=== PATIENT | male | born 1990 | race Caucasian/White ===

== ENCOUNTER 2019-12-07 21:19 | Emergency (ER) | payer OTHER, SELFPAY ==
[2019-12-07 21:20] VITALS: BP 146/90; PULSE 80; RESP 18; TEMP 36.7; O2SAT 98; BMI 24.4
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
--- NOTE | 2019-12-07 22:17 | ED.DEP ---
ED Disposition - Plan for ED Patient: Instructions: ED Concussion, Contusions (Bruises) Prescriptions: cycloBENZAPRine HCl [Flexeril] 10 mg PO TID PRN #20 tab PRN Reason: Muscle Spasm Prescription Printed Ibuprofen [Motrin] 800 mg PO TID PRN PRN #20 tab PRN Reason: Pain Or Fever Prescription Printed Referrals: [facility] [GROUP OF PHYSICIANS] -
== END 2019-12-07 22:48 | disposition home or self-care (01) ==
LOC: ED 22:12
PROVIDERS: Emergency Provider Emergency Medicine; PCP Family Medicine
DX: S00.83XA Contusion of other part of head, initial encounter (principal); S20.222A Contusion of left back wall of thorax, initial encounter; S20.221A Contusion of right back wall of thorax, initial encounter; W55.29XA Other contact with cow, initial encounter; Y93.89 Activity, other specified; Y92.89 Other specified places as the place of occurrence of the external cause; Y99.0 Civilian activity done for income or pay
CPT/HCPCS: 70450; 70486; 71101; 99282

== ENCOUNTER → 2021-06-03 15:12 | Outpatient (CLI) | payer OTHER, SELFPAY ==
--- NOTE | 2021-06-03 15:18 | RAD_ITS ---
EXAM: XR RIGHT ANKLE COMPLETE, 3 OR MORE VIEWS CLINICAL INDICATION: SPRAIN OF ANKLE, RIGHT TECHNIQUE: Frontal, lateral and oblique views of the right ankle. This report was created using [employer] report generation technology. COMPARISON: None. FINDINGS: BONES/JOINTS: Unremarkable. No acute fracture. No subluxation. Normal alignment. Preservation of the joint space. No sclerotic or destructive changes observed. SOFT TISSUES: Unremarkable. No soft tissue swelling or gas. No radiopaque foreign body. RAD/Ankle min 3 Views IMPRESSION: Negative right ankle x-rays. Electronically Signed: Ludwin Ellis MD at 17:32 EST , Service support ,
== END ==
PROVIDERS: PCP Family Medicine; Referring Provider Family Medicine; Visit Provider Family Medicine
DX: S93.401A Sprain of unspecified ligament of right ankle, initial encounter (principal)
CPT/HCPCS: 73610

== ENCOUNTER 2021-08-26 18:00 | Outpatient (RCR) | payer OTHER, SELFPAY ==
--- NOTE | 2021-07-17 15:56 | HP.PTEVAL_ITS ---
Patient's Visit Information IRINA NUNEZ is a 30 year old M referred to Physical Therapy by Dr. Sukhwinder Penn MD with a diagnosis of RECURRENT ANKLE SPRAIN AND RIGHT MEDIAL EPICONDYLITIS. Date of Evaluation: 07/17/21 Physical Therapist: Wagner Frank, PT, Cert MDT, OCS - Visit Plan Frequency: 2x /Week Duration: 4 Weeks Plan: PT INTERVETIONS RIGHT ANKLE STRENGTHENING ,PROPRICEPTION ,FUNCTIONAL STRENGTHNEING ,ELBOW FORARM WRIST STRETCHING/STRENGTHING - Subjective This 30 y/o male presents to physical therapy with recurrent right ankle sprain and right elbow pain. Patient has ankle sprains since middle school ~ 15 years . Last injury during summer but ankle has been remaining sore. Patient pain located right lateral ankle with inversion ankle sprain. Symptoms affected walking worse on uneven surfaces . 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 Denies numbness/tingling. Patient has had right elbow tendonitis for 6 months . Patient aggravating factors working on machines and repetitive activity. Patient does use ankle brace lace up. Grasping and carrying heavy things. Patient condition of ankle sprains recurrent and elbow tendonitis from work demands on diary [employer]. SOCIAL: . VOCATION: [employer] - Pain Right Ankle Pain Intensity (Out of 10): 7 Pain Intensity Range: 10 Comment: during twisting Right Elbow Pain Intensity (Out of 10): 3 Pain Intensity Range: 10 Comment: worse dull pain - Objective POSTURE: fontal plane mechanics pes planus. GAIT: reciprocal gait. PALPATION: medial epicondyle ,olecranon. NEURO: denies paresthesia/tingling. AROM ANKLE : dorsiflexion 5 degrees, plantarflexion 65 degrees ,inversion 35 degrees, eversion 10 degrees. MMT: anteriortibials 5/5,pernoneous, posterior tibials 4/5 ,G-S 4/5. FLEXABLITY: G-S WFL. PROPRIOCEPTION: fair+. AROM ELBOW: supination/pronation/wrist flexion/extension WFL. MMT: biceps/triceps 4/5,wrist flexion/extension/supination/pronation 4/5. 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 Goal Time Frame: 4-6 Weeks Goal 3:: Patient to improve proprioception symmetrical right compared to left to right. 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 Goal Time Frame: 4-6 Weeks Goal 5:: Patient to minimize recurrent ankle sprains by increase ankle strength 5/5 Goal Time Frame: 4-6 Weeks Goal 6:: Patient to improve LFES score by 5 points to improve QOL and function Goal Time Frame: 4-6 Weeks - Rehabilitation Potential Physical Therapy Diagnosis: This 30 y/o has recurrent ankle sprains with laxity anterior drawer and decrease proprioception along with pain elbow tendonitis worsens with job and repetitive activity thus benefit from skilled PT Rehabilitation Potential: Good - Anticipated Interventions Patient/Client Instruction: Educate patient on: Condition, Plan of Care For the Purpose of:: To decrease pain, To increase ROM, To improve muscle performance and motor function, To improve ability to perform ADL's, To increase tolerance to activity/condition/position, To improve performance and independence with ADL's, To improve ability of physical actions for home/community/work/leisure, To improve health of tissue, To decrease soft tissue restriction, To increase flexibility/ROM, To prevent re-injury Therapeutic Exercise to Include: Strength training, Power training, Balance training, Postural training, Flexibilty training, Active ROM Comment: ANKLE STABILIZERS,ELBOW FORARM/WRSIT For the Purpose of:: To decrease pain, To increase ROM, To improve muscle performance and motor function, To improve ability to perform ADL's, To increase tolerance to activity/condition/position, To improve performance and independence with ADL's, To improve ability of physical actions for home/community/work/leisure, To improve health of tissue, To decrease soft tissue restriction, To increase flexibility/ROM, To improve endurance, To improve balance, To prevent re-injury TENS: Yes IF ES: Yes Cryotherapy (ice pack, ice massage): Yes Thermo therapy (hot pack): Yes Ultrasound (thermal/non thermal): Yes For the Purpose of:: To decrease pain, To increase ROM, To improve nutrient delivery to tissue, To increase oxygenation perfusion, To improve health of tissue, To decrease soft tissue restriction Thank you for the opportunity to evaluate your patient. For Medicare and Medicare HMO plans, please review the plan of care and approve it. It will need to be FAXED BACK to us at [phone] for Medicare purposes. For Medicare only, by signing this I certify the plan of care. Please let me know if there are questions or concerns regarding this plan of care. Physician Signature: Date:
--- NOTE | 2021-08-26 19:01 | HP.PTDCSUM ---
It has been my pleasure to treat IRINA NUNEZ referred by Dr. Sukhwinder Penn MD, with the diagnosis of RECURRENT ANKLE SPRAIN AND RIGHT MEDIAL EPICONDYLITIS for a total of 10 visit(s). Discharge Date: 08/26/21 Please see the following information for a summary of their discharge status. Subjective: Doing good ready for d/c Right Ankle Pain Intensity (Out of 10): 0 Right Elbow Pain Intensity (Out of 10): 0 % Improvement: 90 Objective/Function: AROM ANKLE : WNL. MMT ANKLE 10/31. PROPRIOCEPTION: INTACT. 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 Goal Progress: Goal Met Goal 3:: Patient to improve proprioception symmetrical right compared to left to right. 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 Goal Progress: Goal Met Goal 5:: Patient to minimize recurrent ankle sprains by increase ankle strength 10/31 Goal Progress: Goal Met Goal 6:: Patient to improve LFES score by 5 points to improve QOL and function Goal Progress: Goal Met Plan: d/c to HEP Discharge Comments: [facility] If there are questions or concerns regarding this patient's physical therapy, please feel free to call me at [phone]. Thank you for the referral of this patient. Sincerely, Wagner Frank, PT, Cert MDT, OCS Balance/Gait/Functional tests - Balance/Special Test Scores Lower Extremity Functional Score: 79
== END 2021-08-26 19:00 | disposition home or self-care (01) ==
LOC: PT 18:00
PROVIDERS: PCP Family Medicine; Referring Provider Family Medicine; Visit Provider Family Medicine
DX: S93.401D Sprain of unspecified ligament of right ankle, subsequent encounter (principal); M77.01 Medial epicondylitis, right elbow; X58.XXXD Exposure to other specified factors, subsequent encounter
CPT/HCPCS: 97110; 97161

== ENCOUNTER → 2022-02-04 | Outpatient (CLI) | payer OTHER, SELFPAY ==
[2022-02-04 10:18] LABS: Vitamin D,25 Hydroxy 49.6 ng/mL
[2022-02-04 10:22] LABS: ALB/GLOB Ratio 1.2 RATIO (0.9-2.4); AST(SGOT) 27 U/L (15-37); Alanine Aminotransfer ALT/SGPT 35 U/L (16-61); Alkaline Phosphatase 41 U/L (45-117); Anion Gap 4 (5-15); BUN 20 mg/dL (7-18); BUN/Creat Ratio 24.4 RATIO (10-20); Calcium,Total 9.1 mg/dL (8.5-10.1); Chloride 104 mmol/L (98-107); Cholesterol 180 mg/dL (200); Creatinine, Serum 0.82 mg/dL (0.70-1.30); EST Glomerular Filtration Rate 118 mL/min (>60); Est Glom Filt Rate - Afr Amer 142 mL/min (>60); Globulin 3.4 g/dL (2.2-4.2); Glucose 89 mg/dL (74-106); High Density Lipoprotein 57 mg/dL; Potassium 3.8 mmol/L (3.5-5.1); Protein, Total 7.4 g/dL (6.4-8.2); Sodium Level 139 mmol/L (136-145); Triglycerides 126 mg/dL; Very Low Density Lipoprotein 25 mg/dL (5-40)
== END | disposition home or self-care (01) ==
PROVIDERS: PCP Family Medicine; Referring Provider Family Medicine; Visit Provider Nurse Practitioner Family
DX: E55.9 Vitamin D deficiency, unspecified (principal); Z13.220 Encounter for screening for lipoid disorders; Z13.1 Encounter for screening for diabetes mellitus
CPT/HCPCS: 36415; 80053; 80061; 82306

== ENCOUNTER 2024-07-10 18:43 | Emergency (ER) | payer OTHER, SELFPAY ==
[2024-07-10 18:44] VITALS: BP 135/101; PULSE 71; RESP 18; TEMP 36.8; O2SAT 99; BMI 28.1
--- NOTE | 2024-07-10 18:50 | EDS_ITS ---
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 There is a laceration between the fourth and fifth fingers. No active bleeding. No weakness numbness or tingling. Last tetanus unknown. PFSH <LORENA Pavon - Last Filed: 07/10/24 19:51> PFSH Home Medications ?Medication ?Instructions ?Recorded ?Last Taken ?Type NK 07/10/24 Unknown History Allergy/AdvReac Type Severity Reaction Status Date / Time oseltamivir (From Tamiflu) AdvReac Vomiting Verified 07/10/24 18:44 Social History Smoking Status: Never smoker alcohol intake: current alcohol intake frequency: holidays/special occasions only Alcohol type: beer ROS <LORENA Pavon - Last Filed: 07/10/24 19:51> ROS ED ROS Narrative Neuro: Negative for motor or sensory dysfunction. Skin: Positive for laceration. Musc: Negative for joint pain, swelling. EXAM <LORENA Pavon - Last Filed: 07/10/24 19:51> Physical Exam Narrative Exam Narrative: CONST: Patient sitting in no acute distress. EYES: Normal inspection. SKIN: 2 cm linear laceration right dorsal hand between the fourth and fifth MCP webspace. No active bleeding, no foreign body. Wound is approximated but opens and bleeds with movement of the digits. No tendon involvement. EXTREMITIES: Full range of motion right hand and digits, normal motor and sensory function in median radial and ulnar distributions, brisk cap refill, 2+ radial pulse. NEURO: Alert and answering questions appropriately. PSYCH: Normal affect. Const Vital Signs: 07/10/24 18:44 Temperature 98.3 F Temperature Source Temporal Pulse Rate 71 Respiratory Rate 18 Blood Pressure 135/101 H Blood Pressure Mean 112 Pulse Ox 99 Oxygen Delivery Method Room Air <Dr. Doe Sanchez DO - Last Filed: 07/10/24 19:46> Physical Exam Const Vital Signs: 07/10/24 18:44 Temperature 98.3 F Temperature Source Temporal Pulse Rate 71 Respiratory Rate 18 Blood Pressure 135/101 H Blood Pressure Mean 112 Pulse Ox 99 Oxygen Delivery Method Room Air PROC <LORENA Pavon - Last Filed: 07/10/24 19:51> Procedures Lacerations Right dorsal hand: Length: 2 cm Depth: Skin Shape: Linear Laceration repair: Irrigated, Lidocaine and Local Irrigated (ml): 200 Number of Sutures/John: 2 Suture Information: Ethilon and 5-0 MDM <Dr. Doe Sanchez DO - Last Filed: 07/10/24 19:46> MDM MDM Narrative Medical decision making narrative: I have personally performed a face to face assessment of the patient and have reviewed the KUSH Note. I performed a substantive portion of the visit including all aspects of the following. My king findings include: History is [patient presents with injury to his right hand that occurred today. 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 He is right-hand dominant. Unsure of his last tetanus shot. No significant pain.] Exam is [HEENT-PERRLA, EOMI. Cranial nerves II through XII grossly intact. TMs clear. Mucous membranes moist. No adenopathy. Cardiovascular-regular rate and rhythm without murmur or ectopy Lungs-clear to auscultation, chest wall stable without crepitus or subcu emphysema Abdomen-normoactive bowel sounds, soft, nontender, no rebound or rigidity, no peritoneal signs. Extremities-intact ?4. Right hand-patient has a 2 cm superficial laceration between the dorsum of the fourth and fifth digits in the webspace. No significant active bleeding initially. He has normal range of motion flexion extension of all digits. No bony tenderness on exam. No foreign bodies noted within the wound. Medical Decison Making [patient had suture repair of the laceration by physician executive chef assistant please see procedure note. Patient will be advised to have sutures removed in 10 days. Advised to return if increasing pain, redness, swelling, purulent drainage, or condition should worsen they wait.] Other additions or changes: [None] Discharge Plan Triage Chief Complaint: Laceration ED Midlevel Provider: Demi Villa ED Provider: Doe Sanchez Dx/Rx/DC Orders Clinical Impression: Laceration of hand, right Instructions: ED Laceration Extremity Prescriptions: No Action NK Primary Care Provider: Sukhwinder Penn Referrals: Sukhwinder Penn MD [Primary Care Provider] - Activity Restrictions/Additional Instructions: Keep area clean. He can shower but do not keep hand submerged underwater. Stitches need removed in 7 days. Return immediately if signs of infection develop like redness, swelling, or pus. Print Language: British Disposition Disposition: Home, Self Care
[2024-07-10] MEDS: Diphth,Pertuss(Acell),Tet Vac 0.5 ML Vial IM (19:07)
[2024-07-10] MEDS: Lidocaine 1% (20 ml mdv) 20 ML Vial INFILT (19:08)
[2024-07-10 19:56] VITALS: BP 141/91; PULSE 76; RESP 18; TEMP 36.8; O2SAT 99
== END 2024-07-10 19:57 | disposition home or self-care (01) ==
PROVIDERS: Emergency Provider Emergency Medicine; PCP Family Medicine; Visit Provider Emergency Medicine
DX: S61.411A Laceration without foreign body of right hand, initial encounter (principal); S61.214A Laceration without foreign body of right ring finger without damage to nail, initial encounter; S61.216A Laceration without foreign body of right little finger without damage to nail, initial encounter; W22.09XA Striking against other stationary object, initial encounter; Z23 Encounter for immunization
CPT/HCPCS: 12001; 90471; 90715; 99283